=== PATIENT | female | born 1970 | race Asian ===

== ENCOUNTER 2019-05-25 22:54 | Emergency (ER) | payer BC, OTHER ==
[~2019-05-25] VITALS: Ht 157.5 cm; Wt 71.2 kg
--- NOTE | 2019-05-26 00:36 | NUR ---
DR. CHACON AT BEDSIDE FOR MSE.
[2019-05-26] MEDS ORDERED: IBUPROFEN 600 MG TABLET PO ONE (00:45)
[2019-05-26] MEDS ORDERED: IBUPROFEN 600 MG TABLET ONE (00:50)
[2019-05-26 02:05] VITALS: BP 158/86
--- NOTE | 2019-05-26 02:05 | NUR ---
Patient discharged to home in stable conditon. Written and verbal after care instructions given. Patient verbalizes understanding of instructions. PATIENT LEFT WITH STABLE GAIT.
== END 2019-05-26 02:06 | disposition home or self-care (01) ==
LOC: ER 22:58
DX: S13.4XXA Sprain of ligaments of cervical spine, initial encounter (principal); S23.8XXA Sprain of other specified parts of thorax, initial encounter; R51 Headache; V43.52XA Car driver injured in collision with other type car in traffic accident, initial encounter; Y93.89 Activity, other specified; Y92.410 Unspecified street and highway as the place of occurrence of the external cause; Y99.8 Other external cause status
CPT/HCPCS: 71046; 93005; A4663